=== PATIENT | male | born 1960 | race Caucasian/White ===

== ENCOUNTER 2017-09-01 16:15 | Inpatient (IN) | payer OTHER ==
[2017-09-16] MEDS ORDERED: Heparin 5,000 UNITS/ML VIAL ONE (07:50)
[2017-09-16] MEDS ORDERED: CEFAZOLIN/Water 2 GM/20 ML SYRINGE ONE (07:50)
[2017-09-16] MEDS ORDERED: Bupivacaine/Epinephrine 0.25% 30 ML VIAL ONE (09:05)
[2017-09-16] MEDS ORDERED: Fentanyl 250 MCG/5 ML VIAL ONE ×2 (09:06→11:27)
--- NOTE | 2017-09-16 11:59 | OP ---
DATE OF PROCEDURE: 09/16/2017 PREOPERATIVE DIAGNOSIS: 1. Morbid obesity with a BMI of 59. 2. Hypertension. POSTOPERATIVE DIAGNOSES: 1. Morbid obesity with a BMI of 59. 2. Hypertension. PROCEDURES: 1. Laparoscopic sleeve gastrectomy with [place] staple line reinforcements and 38 [place] bougie. 2. EGD. SURGEON: Jamel Nuno M.D. ANESTHESIA: General. ESTIMATED BLOOD LOSS: Minimal. COMPLICATIONS: None. SPECIMEN: Stomach. FINDINGS: Normal postoperative esophagogastroduodenoscopy. INDICATION: The patient is a 57-year-old male who presents with a body mass index of 59. associated with hypertension. He has attended our weight loss seminar as well as preoperative education and ps ychologic evaluation. He understands risks and benefits specific to sleeve as well as alternative pr ocedures for weight loss. PROCEDURE IN DETAIL: The patient was taken to the operating room and placed supine on the table. Af ter general anesthetic was obtained, the arms and legs are double strapped to bariatric table. OG tu be used to decompress the stomach. The abdomen was shaved, and draped in a sterile fashion. Left rico bcostal 5-mm Optiview trocar was placed in the usual fashion without injury and high-flow pneumoperit oneum was obtained. Left and right abdominal 12-mm ports as well as a right subcostal 5-mm port were placed under direct visualization. A 5 mm incision was made at the xiphoid and the Nathansen's used to raise the liver off the GE junction. The short gastric taken down to a distance of 5 cm proximal to the pylorus all the way to the left praveen of the diaphragm. The fundus of the stomach, left praveen and angle of His completely dissected. Short gastrics are taken down at a distance of 5 cm proximal to the pylorus. All posterior adhesions were taken down. The OG tube was removed and a 38 bougie wa s brought in and its tip flipped and left in the antrum of the stomach. Multiple loads of an [place] stapling device were used to form the sleeve. The first is fired up at a distance of 5 cm proximal to the pylorus angled up towards the incisura. Care was taken to avoid being too close to the incisu ra. Multiple loads were then fired up along the bougie, and stomach is completely transected at the angle of His. The stomach was removed and the left abdominal incision. This fascial defect closed u sing GraNee needle and 0 Vicryl tie. All port sites were infiltrating local anesthetic. EGD scope w as passed into the esophagus, stomach to the level of the duodenum without obstruction. There is no stricture or stenosis at the incisura. There is no air leakage through the staple line. There is no bleeding on the internal staple line. EGD scope was used to decompress the stomach, it was pulled a nd removed. Nathansen retractor was removed under direct visualization without bleeding. All port s ites are infiltrated. All port sites were removed under direct visualization without bleeding and pr ep was let down. 4-0 Monocryl and Dermabond used to close all skin incisions. The patient is en rou te to recovery in stable condition. All instrument counts, needle counts, lap counts were correct.
[2017-09-16] MEDS ORDERED: Ondansetron HCl/PF 4 MG/2 ML Vial IVP PRN ×3 (12:12→13:55)
[2017-09-16] MEDS ORDERED: Promethazine HCl 25 MG/ML VIAL SLOW IVP PRN (12:12)
[2017-09-16] MEDS ORDERED: Promethazine HCl 25 MG/ML VIAL IM PRN ×3 (12:12→13:55)
[2017-09-16] MEDS ORDERED: Fentanyl 5000 MCG/250 ML CADD IVPB PRN (12:13)
[2017-09-16] MEDS ORDERED: Zolpidem Tartrate 5 MG TAB PO PRN (12:13)
[2017-09-16] MEDS ORDERED: Naloxone HCl 0.4 mg/ml Vial IV PRN (12:13)
[2017-09-16] MEDS ORDERED: diphenhydrAMINE 50 MG/ML VIAL IVP PRN ×2 (12:13→13:55)
[2017-09-16] MEDS ORDERED: diphenhydrAMINE 25 MG CAP PO PRN (12:13)
[2017-09-16] MEDS ORDERED: diphenhydrAMINE 50 MG/ML VIAL IM PRN (12:13)
[2017-09-16] MEDS ORDERED: Communication Order-Pharmacy FS SCH (12:15)
[2017-09-16] MEDS ORDERED: fentaNYL Citrate/PF 2,000 MCG in Sodium Chloride 0.9% 60 ML IV PRN (12:30)
[2017-09-16] MEDS ORDERED: Dextrose 50% Abboject 50 ML SYRINGE SLOW IVP PRN (13:55)
[2017-09-16] MEDS ORDERED: Dextrose 5% in Water 1,000 ML IV PRN (13:55)
[2017-09-16] MEDS: D5 1/2 NS w/20 mEq KCL 1,000 ML IV SCH ×2 (14:21→19:28)
[2017-09-16] MEDS ORDERED: Lidocaine 1% PF 5 ML VIAL ONE (14:49)
[2017-09-16] MEDS ORDERED: Succinylcholine Chloride 20 MG/ML 10 ml SYRINGE FS ONE (14:49)
[2017-09-16] MEDS ORDERED: Ondansetron HCl/PF 4 MG/2 ML Vial ONE (14:49)
[2017-09-16] MEDS ORDERED: Ketorolac Tromethamine 30 MG/ML VIAL ONE (14:49)
[2017-09-16] MEDS ORDERED: Propofol 200 MG/20 ML VIAL ONE (14:49)
[2017-09-16] MEDS ORDERED: Dexamethasone 20 MG/5 ML VIAL ONE (14:49)
[2017-09-16] MEDS ORDERED: Glycopyrrolate 0.2 MG/ML 5 ML SYRINGE ONE (14:49)
[2017-09-16 14:57] VITALS: BMI 56.2
[2017-09-16] MEDS: hydrALAZINE 20 MG/ML VIAL SLOW IVP PRN (20:22)
[2017-09-16] MEDS: Enoxaparin Sodium 40 MG/0.4 ML SYRINGE SC SCH (20:22)
[2017-09-17 04:20] LABS: #Monocytes 0.8 thou/uL (0.11-0.59); #Neutrophils 8.4 thou/uL (1.40-6.50); %Eosinophils 0.1 % (0.0-10.0); %Lymphocytes 10.1 % (21.0-51.0); %Monocytes 7.6 % (0.0-10.0); %Neutrophils 82.1 % (42.0-75.0); Hemoglobin 15.5 g/dL (14.0-18.0); Mean Corpuscular HGB CONC 33.7 g/dL (32.0-36.0); Mean Corpuscular Hemoglobin 30.9 pg (27.0-31.0); Mean Corpuscular Volume 91.5 fl (80.0-94.0); Mean Platelet Volume 7.5 fL (7.4-10.4); Platelet Count 291 thou/uL (130-400); RBC Distribution Width 12.3 % (11.5-14.5); Red Blood Cell (RBC) Count 5.04 mill/uL (4.70-6.10); White Blood Cell (WBC) Count 10.2 thou/uL (4.8-10.8)
[2017-09-17 04:31] LABS: Anion Gap 11 mmol/L (10-20); BUN (Urea Nitrogen) 17 mg/dL (8.4-25.7); Calc. Creatinine Clearance 185 mL/min (70-130); Calcium 10.2 mg/dL (7.8-10.44); Carbon Dioxide 25 mmol/L (22-29); Chloride 103 mmol/L (98-107); Estimated GFR-MDRD 72; Glucose 128 mg/dL (70-105); Potassium 4.3 mmol/L (3.5-5.1); Sodium 135 mmol/L (136-145)
[2017-09-17] MEDS: D5 1/2 NS w/20 mEq KCL 1,000 ML IV SCH ×3 (05:29→20:29)
[2017-09-17] MEDS: Pantoprazole 40 MG VIAL IVP SCH (08:33)
[2017-09-17] MEDS: Hydrocodone-Acetamin 15 ML UDCUP PO PRN ×2 (13:44→20:29)
[2017-09-17] MEDS ORDERED: Morphine 4 MG/ML VIAL SLOW IVP PRN ×2 (17:47→17:48)
[2017-09-17] MEDS: Enoxaparin Sodium 40 MG/0.4 ML SYRINGE SC SCH (20:23)
[2017-09-18] MEDS: D5 1/2 NS w/20 mEq KCL 1,000 ML IV SCH (05:03)
[2017-09-18] MEDS: hydrALAZINE 20 MG/ML VIAL SLOW IVP PRN (08:19)
[2017-09-18] MEDS: Pantoprazole 40 MG VIAL IVP SCH (08:20)
[2017-09-18 08:28] VITALS: BP 175/90; TEMP 97.6
== END 2017-09-18 10:00 | disposition home or self-care (01) | DRG 621 ==
LOC: SURG A 09-16 07:13 → SURG B 09-16 13:12
PROVIDERS: ADMIT Surgery; ATTEND Surgery
PROC: 0DB64Z3 Excision of Stomach, Percutaneous Endoscopic Approach, Vertical (ICD-10-PCS; principal; 2017-09-16)
DX: E66.01 Morbid (severe) obesity due to excess calories (principal); I10 Essential (primary) hypertension; Z68.43 Body mass index [BMI] 50.0-59.9, adult
CPT/HCPCS: 36415; 80048; 85025; 88307; 88312; C9113; J0131; J0360; J1100; J1644; J1650; J1885; J2001; J2405; J2704; J3010; J7050

== ENCOUNTER 2017-09-04 13:26 | Outpatient (CLI) | payer OTHER | END 2017-09-04 13:27 | disposition home or self-care (01) | LOC: DTY/OP 13:26 | PROVIDERS: ATTEND Surgery | DX: Z01.818 Encounter for other preprocedural examination (principal); Z01.812 Encounter for preprocedural laboratory examination; E66.01 Morbid (severe) obesity due to excess calories | CPT/HCPCS: 97802 ==

== ENCOUNTER 2017-12-24 20:19 | Emergency (ER) | payer BC ==
[2017-12-24 20:52] LABS: Bilirubin Moderate (Negative); Blood, Urine Large (Negative); Clarity TURBID (Clear); Glucose, Urine (Dipstick) Negative (Negative); Leukocyte Small (Negative); Nitrite Negative (Negative); Protein, Urine (Dipstick) 100 mg/dL (Neg-Trace); Specific Gravity, Urine 1.028 (1.002-1.036); pH, Urine 5.5 (5.0-9.0)
[2017-12-24 20:55] LABS: Bacteria/HPF None Seen HPF (None Seen); Hyaline Casts/LPF 4-6 HYALINE CAST LPF (0-3 Hyaline); Pathc Cast-AUWi Flag 0.62 (0-2.49); RBC/HPF GREATER THAN 50-TNTC HPF (0-3); Squamous Epithelial 0-3 HPF (0-3)
[2017-12-24] MEDS ORDERED: Ketorolac Tromethamine 30 MG/ML VIAL ONE (21:06)
[2017-12-24 21:08] LABS: #Eosinphils 0.1 thou/uL (0.0-0.7); #Monocytes 0.5 thou/uL (0.11-0.59); #Neutrophils 6.9 thou/uL (1.40-6.50); %Basophils 0.5 % (0.0-1.0); %Lymphocytes 21.2 % (21.0-51.0); %Monocytes 5.4 % (0.0-10.0); Hemoglobin 14.4 g/dL (14.0-18.0); Mean Corpuscular HGB CONC 34.1 g/dL (32.0-36.0); Mean Corpuscular Hemoglobin 31.2 pg (27.0-31.0); Mean Corpuscular Volume 91.6 fL (78.0-98.0); Mean Platelet Volume 7.1 fL (7.4-10.4); Platelet Count 309 thou/uL (130-400); RBC Distribution Width 12.6 % (11.5-14.5); Red Blood Cell (RBC) Count 4.62 mill/uL (4.70-6.10); White Blood Cell (WBC) Count 9.6 thou/uL (4.8-10.8)
[2017-12-24 21:30] LABS: ALT (SGPT) 22 U/L (8-55); AST (SGOT) 16 U/L (5-34); Albumin 4.6 g/dL (3.5-5.0); Alkaline Phosphatase 62 U/L (40-150); Anion Gap 12 mmol/L (10-20); BUN (Urea Nitrogen) 28 mg/dL (8.4-25.7); Bilirubin, Total 0.9 mg/dL (0.2-1.2); Calc. Creatinine Clearance 0 mL/min (70-130); Calcium 10.7 mg/dL (7.8-10.44); Carbon Dioxide 24 mmol/L (22-29); Chloride 105 mmol/L (98-107); Estimated GFR-MDRD 61; Globulin 2.9 g/dL (2.4-3.5); Glucose 138 mg/dL (70-105); Potassium 3.9 mmol/L (3.5-5.1); Protein, Total 7.5 g/dL (6.0-8.3); Sodium 137 mmol/L (136-145)
[2017-12-24] MEDS ORDERED: Ondansetron ODT 4 MG TAB ONE (22:21)
[2017-12-24] MEDS ORDERED: Fentanyl 100 MCG/2 ML VIAL ONE (22:23)
[2017-12-24] MEDS ORDERED: cefTRIAXone\\ROCEPHIN 2 GM VIAL ONE (22:28)
--- NOTE | 2017-12-24 23:03 | CT ---
CT ABDOMEN NONCONTRAST CT PELVIS NONCONTRAST: (urolithiasis protocol) DATE: 12/24/17 TIME: 10:26 p.m. HISTORY: 57-year-old male with acute right flank pain. COMPARISON: None. TECHNIQUE: IV injection of iodinated contrast media: none Oral contrast media: none FINDINGS: Other than for urolithiasis, the lack of IV and oral contrast limits the evaluation. There is a 3 x 2 x 4 mm calculus at the far distal right ureter located approximately 1 cm proximal t o the right UVJ, causing mild right hydroureteronephrosis. There is no calculus within the kidneys or the urinary bladder. There is a well circumscribed, round 2.2 cm mass exophytically protruding infer iorly from the lower pole of the right kidney with a density of 11 HU, consistent with a cystic lesio n. Within the limitations of a noncontrast scan, no abnormality is identified involving the appendix, le ft kidney, liver, abdominal aorta, adrenals, pancreas, or spleen. The stomach is narrowed, and has rico ture lines along its length. No acute colonic diverticulitis. Urinary bladder is empty. A urachus ext ends anterior and superiorly from the urinary bladder. No ascites, pneumoperitoneum, or pleural effus ion. The lung bases are clear. IMPRESSION: 1. Positive for right sided obstructive uropathy, with a 4 mm distal right ureteral calculus cau sing mild right hydroureteronephrosis. 2. Status post vertical sleeve gastrectomy. 3. Urachus. 4. Small cystic lesion at right renal lower pole. MERY Beavers POS: FOUZIA
== END 2017-12-24 20:21 | disposition home or self-care (01) ==
LOC: ERS 20:19
DX: N13.2 Hydronephrosis with renal and ureteral calculous obstruction (principal); I10 Essential (primary) hypertension; Z79.899 Other long term (current) drug therapy
CPT/HCPCS: 74176; 80053; 81003; 81015; 85025; 87086; 96361; 96365; 96375; J0696; J1885; J3010; Q0162